=== PATIENT | male | born 1965 | race Caucasian/White ===

== ENCOUNTER → 2019-03-26 | Outpatient (CLI) | payer BC ==
--- NOTE | 2019-03-26 09:33 | FL ---
EXAMINATION TYPE: FL barium swallow DATE OF EXAM: 03/26/2019 CLINICAL HISTORY: Gastroesophageal reflux and dysphagia TECHNIQUE: A double contrast esophagram is performed utilizing air and barium. A total of 1.37 reyna misael of fluoroscopic time was utilized during procedure. 33 fluoroscopic images were saved. COMPARISON: None FINDINGS: The esophagus shows normal motility and emptying into the stomach. No evidence of hiatal h ernia or stricture noted. Mild degree gastroesophageal reflux is seen on the upright imaging with mod erate intraesophageal and gastroesophageal reflux seen on the gravity independent supine portion of t he examination. IMPRESSION: Moderate intraesophageal and gastroesophageal reflux in the supine position without anato levi cause on this examination as there is no hiatal hernia nor distal esophageal stricture seen.
== END ==
LOC: RADUSWWP 08:26
PROVIDERS: ATTEND Otolaryngology
DX: K21.9 Gastro-esophageal reflux disease without esophagitis (principal)
CPT/HCPCS: 74220

== ENCOUNTER → 2020-09-15 | Outpatient (CLI) | payer BC ==
--- NOTE | 2020-09-15 21:29 | US ---
EXAMINATION TYPE: US thyroid st tissue head/neck DATE OF EXAM: 09/15/2020 COMPARISON: NONE CLINICAL HISTORY: E04.1 Nontoxic Single Thyroid Nodule; Z87.891. Abnormal physical exam. GLAND SIZE: Right Lobe: 5.4 x 1.8 x 1.8 cm Overall Parenchyma: homogenous Left Lobe: 4.5 x 1.6 x 1.9 cm Overall Parenchyma: homogeneous Isthmus Thickness: 0.3 cm NODULES RIGHT: # of nodules measured on right: 0 LEFT: # of nodules measured on left: 0 ISTHMUS: # of nodules measured in the isthmus: 0 Bilateral neck scanned, no evidence of lymphadenopathy. Normal appearing thyroid. Thyroid echotexture is homogenous and symmetric IMPRESSION: Thyroid size as described. No discrete nodule.
--- NOTE | 2020-09-16 08:08 | CTL ---
EXAMINATION TYPE: CT Low Dose Lung DATE OF EXAM ORDERED: 09/15/2020 HISTORY: . Lung cancer screening CT DLP: [address] CTDI: 1.99 mGy Automated exposure control for dose reduction was used. SCREENING VISIT: 1 COMPARISON: None TECHNIQUE: Low dose computed tomography scan was performed through the chest at 1 mm thick sections a nd reconstructed images in the coronal plane at [address] DIAGNOSTIC QUALITY: Satisfactory FINDINGS: LUNG NODULES: Present, detailed below: Four mm nodule on CT image 46 in the right upper lobe. Possibly calcified LUNGS: COPD: Severity: None Fibrosis: Severity: None Lymph nodes: None Other findings: None RIGHT PLEURAL SPACE: Effusion: None Calcification: None Thickening: None Pneumothorax: None LEFT PLEURAL SPACE: Effusion: None Calcification: None Thickening: None Pneumothorax: None HEART: Heart Size: Normal Coronary calcification: Mild Pericardial effusion: None OTHER FINDINGS: Upper abdomen: Small hiatal hernia noted. Probable cortical cyst at the upper pole the left kidney me asures 2.6 cm, at the midpole the right kidney there is a partially visualized exophytic focus which may represent cortical cysts but is incompletely evaluated Bony thorax: There is thoracic spondylosis. Mild spinal curvature may be positional. Supraclavicular region: Unremarkable Other: IMPRESSION: Benign CT LUNG RAD AND CT CHEST RECOMMENDATION: Lung-Rad 2 Benign Appearance or Behavior: Continue annual sc reening with LDCT in 12 months. S Modifier (other clinically significant findings):
== END ==
LOC: RADUSWWP 16:46
PROVIDERS: ATTEND Family Medicine
DX: Z12.2 Encounter for screening for malignant neoplasm of respiratory organs (principal); Z87.891 Personal history of nicotine dependence
CPT/HCPCS: 71271; 76536

== ENCOUNTER → 2023-05-06 | Outpatient (CLI) | payer OTHER ==
--- NOTE | 2023-05-06 13:04 | XR ---
EXAMINATION TYPE: XR forearm RT DATE OF EXAM: 05/06/2023 CLINICAL HISTORY: pain TECHNIQUE: Frontal and lateral images of the right forearm are obtained. COMPARISON: None. FINDINGS: There is no acute fracture/dislocation evident. The joint spaces appear within normal limi ts. The overlying soft tissue appears unremarkable. IMPRESSION: There is no acute fracture or dislocation. ICD 10 NO FRACTURE, INITIAL EVALUATION
== END | disposition home or self-care (01) ==
LOC: RADXRMAIN 12:27
PROVIDERS: ATTEND Emergency Medicine
DX: S56.811A Strain of other muscles, fascia and tendons at forearm level, right arm, initial encounter (principal); X58.XXXA Exposure to other specified factors, initial encounter

== ENCOUNTER → 2023-07-19 | Outpatient (CLI) | payer BC ==
[2023-07-19 13:39] LABS: Basophils # (A) 0.04 X 10*3/uL (0.00-0.10); Basophils % (A) 0.5 %; Eosinophils # (A) 0.38 X 10*3/uL (0.04-0.35); Eosinophils % (A) 4.3 %; HCT 43.2 % (39.6-50.0); HGB 14.4 g/dL (13.0-17.0); Lymphocytes # (A) 2.22 X 10*3/uL (0.90-5.00); Lymphocytes % (A) 25.2 %; MCH 30.9 pg (27.0-32.0); MCHC 33.3 g/dL (32.0-37.0); MCV 92.7 FL (80.0-97.0); Mean Platelet Volume 9.4 FL (9.5-12.2); Monocytes # (A) 0.83 X 10*3/uL (0.20-1.00); Monocytes % (A) 9.4 %; NRBC Per 100 WBC 0 X 10*3/uL (0.00-0.01); Neutrophils # (A) 5.33 X 10*3/uL (1.80-7.70); Neutrophils % (A) 60.4 %; Platelet Count 380 X 10*3/uL (140-440); RBC 4.66 X 10*6/uL (4.40-5.60); WBC 8.82 X 10*3/uL (4.50-10.00)
[2023-07-19 14:20] LABS: BUN/Creat Ratio 12.82 Ratio (12.00-20.00); Blood Urea Nitrogen 14.1 mg/dL (9.0-27.0); Chol/HDL Ratio 2.39 Ratio; Glucose 102 mg/dL (70-110); LDL Cholesterol,Calculated 64.2 mg/dL (0.0-131.0); VLDL Calculation 11.88 mg/dL (5.00-40.00)
[2023-07-19 14:21] LABS: ALT 18 U/L (10-49); AST 18 U/L (14-35); Albumin 4.3 g/dL (3.8-4.9); Albumin/Globulin Ratio 1.79 Ratio (1.60-3.17); Alkaline Phosphatase 66 U/L (41-126); Calcium 9.7 mg/dL (8.7-10.3); Carbon Dioxide 28.7 mmol/L (21.6-31.8); Chloride 102 mmol/L (96-109); Globulin 2.4 g/dL (1.6-3.3); Potassium 4.4 mmol/L (3.5-5.5); Sodium 140 mmol/L (135-145); Total Bilirubin 1.7 mg/dL (0.3-1.2); Total Protein 6.7 g/dL (6.2-8.2)
[2023-07-19 15:13] LABS: PSA Annual Screen 0.624 ng/mL (0.000-4.000)
== END | disposition home or self-care (01) ==
LOC: LABWHC1 08:26
PROVIDERS: ATTEND Family Medicine
DX: Z12.5 Encounter for screening for malignant neoplasm of prostate (principal); I10 Essential (primary) hypertension; E03.9 Hypothyroidism, unspecified; E55.9 Vitamin D deficiency, unspecified; E78.5 Hyperlipidemia, unspecified
CPT/HCPCS: 80061; 80053; 84443; 85025; 82306; 36415; G0103

== ENCOUNTER → 2024-01-12 | Outpatient (CLI) | payer BC ==
--- NOTE | 2024-01-12 11:39 | CA ---
Transthoracic Echo Report Name: Ryan Salguero Age: 58 Gender: M : 1965 Exam Date: 01/12/2024 08:40 Exam Location: [facility] Ht (in): 67 Wt (lb): 172 Ordering Physician: Hossein Kaba MD Attending/Referring Phys: Hossein Kaba MD Technical Sales Advisor Alea Faria RDCS Procedure CPT: Indications: R01.1 cardiac murmur Cardiac Hx: Technical Quality: Fair Contrast 1: Total Dose (mL): Contrast 2: Total Dose (mL): MEASUREMENTS (Male / Female) Normal Values 2D ECHO LV Diastolic Diameter PLAX 4.5 cm 4.2 - 5.9 / 3.9 - 5.3 cm LV Systolic Diameter PLAX 3.0 cm IVS Diastolic Thickness 1.0 cm 0.6 - 1.0 / 0.6 - 0.9 cm LVPW Diastolic Thickness 1.1 cm 0.6 - 1.0 / 0.6 - 0.9 cm LV Relative Wall Thickness 0.5 RV Internal Dim ED PLAX 3.2 cm LVOT Diameter 2.1 cm Aortic Root Diameter 2.7 cm LV Diastolic Volume MOD BP 142.3 cm??? 67 - 155 / 56 - 104 cm??? LV Systolic Volume MOD BP 56.5 cm??? 22 - 58 / 19 - 49 cm??? LV Ejection Fraction MOD BP 60.3 % >= 55 % LV Cardiac Index MOD BP 2658.3 cm???/min???m??? LV Diastolic Volume MOD 4C 145.4 cm??? LV Systolic Volume MOD 4C 57.9 cm??? LV Ejection Fraction MOD 4C 60.2 % LV Cardiac Index MOD 4C 2710.4 cm???/min???m??? LV Diastolic Length 4C 9.5 cm LV Systolic Length 4C 7.4 cm LV Diastolic Volume MOD 2C 132.6 cm??? LV Systolic Volume MOD 2C 54.6 cm??? LV Ejection Fraction MOD 2C 58.8 % LV Cardiac Index MOD 2C 2418.6 cm???/min???m??? LV Diastolic Length 2C 8.9 cm LV Systolic Length 2C 7.3 cm LA Volume 47.6 cm??? 18 - 58 / 22 - 52 cm??? LA Volume Index 24.6 cm???/m??? 16 - 28 cm???/m??? Ascending Aorta Diameter 3.5 cm DOPPLER AV Peak Velocity 122.9 cm/s AV Peak Gradient 6.0 mmHg AV Mean Velocity 80.4 cm/s AV Mean Gradient 2.9 mmHg AV Velocity Time Integral 25.8 cm LVOT Peak Velocity 100.5 cm/s LVOT Peak Gradient 4.0 mmHg LVOT Velocity Time Integral 21.7 cm LVOT Stroke Volume 74.8 cm??? LVOT Stroke Volume Index 39.5 ml/m??? LVOT Cardiac Index 2318.8 cm???/min???m??? AV Area Cont Eq vti 2.9 cm??? AV Area Cont Eq pk 2.8 cm??? MV Area PHT 3.0 cm??? Mitral E Point Velocity 62.8 cm/s Mitral A Point Velocity 51.2 cm/s Mitral E to A Ratio 1.2 MV Deceleration Time 250.7 ms PV Peak Velocity 129.3 cm/s PV Peak Gradient 6.7 mmHg FINDINGS Left Ventricle Left ventricular ejection fraction is estimated at 55 to 60 %. Left ventricular cavity size normal. Left ventricular wall thickness normal. No obvious regional wall motion abnormalities. Right Ventricle Normal right ventricular size and function. Unable to estimate the right ventricular systolic pressure. Right Atrium Normal right atrial size. Left Atrium Normal left atrial size. Mitral Valve Structurally normal mitral valve. No evidence for mitral valve prolapse. No mitral stenosis. Mild mitral regurgitation.mitral annular calcification. Aortic Valve Possible bicuspid aortic valve, not well-visualized. Diffuse thickening of the aortic valve cusps with reduced excursion. No aortic valve stenosis or regurgitation. No significant gradient noted Tricuspid Valve Structurally normal tricuspid valve. No tricuspid stenosis. Mild tricuspid regurgitation. Pulmonic Valve Structurally normal pulmonic valve. No pulmonic stenosis. Trace pulmonic regurgitation. Pericardium No pericardial effusion. Aorta Normal size aortic root and proximal ascending aorta. CONCLUSIONS 1. Normal left ventricle size and systolic function 2. Heavily calcified and thickened aortic valve was possible bicuspid valve but no significant gradient was noted 3. Mild mitral and tricuspid regurgitation Previewed by: Dr. Magaly Giraldo MD (Electronically Signed) Final Date: 12 January 2024 11:38
== END | disposition home or self-care (01) ==
LOC: RADECHMAIN 08:06
PROVIDERS: ATTEND Family Medicine
DX: I08.1 Rheumatic disorders of both mitral and tricuspid valves (principal); R01.1 Cardiac murmur, unspecified
CPT/HCPCS: 93306